=== PATIENT | female | born 1980 | race Caucasian/White ===

== ENCOUNTER 2016-11-01 10:36 | Emergency (ER) | payer OTHER ==
[~2016-11-01] VITALS: Ht 172.7 cm; Wt 119.1 kg
[~2016-11-01 10:36] MED LIST: DOCU-41 PO; HYDR-4003 PO; IBUP800T28 PO; PREN-100 PO
[2016-11-01 10:40] VITALS: BP 132/84; PULSE 71; RESP 24; O2SAT 97
[2016-11-01 11:03] LABS: BASOPHILS % (AUTO) 0.5 % (0-3); EOSINOPHILS % (AUTO) 3.1 % (0-5); MONOCYTES % (AUTO) 5.4 % (4-12); Mean Corpuscular Volume 80.5 fL (81-100); NEUTROPHILS % (AUTO) 58.2 % (40-74); Platelet Count 260 bil/L (150-400)
--- NOTE | 2016-11-01 11:09 | ED.REPORT ---
HPI-General Illness Date of Service Nov 01, 2016 ED Provider: Tracey Ruiz MD Pt is a 36 y/o female w/ a hx of Graves' disease and Nathaly's presenting to the ED c/o irregular heart palpitations onset 3 days ago. She c/o associated CP , SOB. She is not on any beta chris medication. She was told that her thyroid labs may be abnormal: labs taken yesterday include Free T4 of 1.78, HCT of 39.7 , HGB of 13.3, and creatinine of 0.61. She denies N/V/D, fever, chills. Nursing Notes Stated Complaint: CHEST PAIN Chief Complaint: Chest Pain Nursing Notes Reviewed: Yes Allergies: Coded Allergies: No Known Allergies (Verified , 07/09/13) Scheduled Docusate Sodium (Colace) 100 Mg Capsule 100 MG PO DAILY Scheduled PRN Hydrocodone-Acetaminophen 5-325 mg (Hydrocodone-Acetaminophen 5-325 mg) 1 Each Tablet 1-2 TABLET PO Q4H PRN PRN For Pain Ibuprofen (Ibuprofen) 800 Mg Tablet 800 MG PO Q6H PRN PRN For Pain Metoprolol Tartrate (Metoprolol Tartrate) 25 Mg Tablet 25 MG PO QID PRN PRN palpitations Miscellaneous Medications Vits #90/Iron Fum/FA ( Formula Tablet) 1 Each Tablet 1 EACH PO General Time Seen by MD: 10:59 Chief Complaint Other (Palps) Hx Obtained From: Patient Arrived By: Walk-in Sudden in Onset?: No Onset Occurred: 3 days ago Symptom Duration: Since onset Location: : Chest Quality: Painful Radiation: : Does not radiate Severity: Current: Mild Severity: Maximum: Mild Recent Healthcare: Previous diagnosis Past Medical History Past Medical History Nathaly's disease Graves' disease Insomnia Low back strain (2012) L5-S1 disk protrusion with canal stenosis by MRI last year -0-2-2 Past Surgical History Denies Family History Reports: Coronary artery disease, Diabetes mellitus, Hypertension Reports: Cancer Smoking History Current Every Day Smoker Social History Alcohol Use: Denies alcohol use Drug Use: Denies drug use Occupation [employer] Ambulatory Status Independent Review of Systems Full Review of Systems Constitutional: Denies: Chills, Fever Respiratory: Reports: Shortness of breath, Denies: Non-productive cough Cardiovascular: Reports: Chest pain, Palpitations GI: Denies: Abdominal pain, Diarrhea, Nausea, Vomiting Complete sys rev & neg: except as marked. Physical Exam Vital Signs Vital Signs Date Time Temp Pulse Resp B/P Pulse Ox O2 Delivery O2 Flow Rate FiO2 11/01/16 11:15 78 14 119/65 100 Nasal Cannula 2 11/01/16 10:40 36.2 71 24 132/84 97 Room Air Initial VS: Reviewed, Vital signs normal Head / Eyes: Atraumatic, Normocephalic, PERRL ENT: Mucous membranes moist, Conjunctiva normal, No scleral icterus Neck: Supple, Full range of motion Respiratory: Breath sounds normal, Clear to auscultation, No respiratory distress Abdomen / GI: Soft, No distention Extremities: Vascular intact, Neuro intact, No swelling, No tenderness Skin: Warm, Dry, No cyanosis Neurologic: Alert, Oriented, Nonfocal Psychiatric: Mood/affect normal, Behavior normal, Normal thought content Cardiovascular: Heart rate NL, Heart sounds NL, No gallop, No murmurs, No rubs , Cap refill not delayed, Peripheral circulation NL Heart Rate / Rhythm: Positive: Irregular rhythm Interpretation & Diagnostics Lab Results Interpretation Result Diagram: 11/01/16 1059 11/01/16 1059 Test 11/01/16 10:59 White Blood Count 8.5th/mm3 (3.8-10.1) Red Blood Count 4.92mil/mm3 (3.90-5.20) Hemoglobin 13.8g/dL (12.0-15.6) Hematocrit 39.6% (35.0-46.0) Mean Corpuscular Volume 80.5fL (81-100) Mean Corpuscular Hemoglobin 28.0pg (27.0-35.0) Mean Corpuscular Hemoglobin Concent 34.8% (32.0-37.0) Red Cell Distribution Width 12.9% (12.3-15.4) Platelet Count 260bil/L (150-400) Neutrophils (%) (Auto) 58.2% (40-74) Lymphocytes (%) (Auto) 32.7% (14-46) Monocytes (%) (Auto) 5.4% (4-12) Eosinophils (%) (Auto) 3.1% (0-5) Basophils (%) (Auto) 0.5% (0-3) Sodium Level 137mEq/L (134-144) Potassium Level 4.0mEq/L (3.5-5.2) Chloride Level 101mEq/L (97-108) Carbon Dioxide Level 19mmol/L (18-29) Blood Urea Nitrogen 15mg/dL (6-20) Creatinine 0.67mg/dL (0.57-1.00) Estimat Glomerular Filtration Rate 143mL/min (>59) Glucose Level 123mg/dL (60-99) Calcium Level 9.7mg/dL (8.5-10.1) Magnesium Level 2.0mg/dL (1.6-2.6) Total Bilirubin 0.3mg/dL (0.0-1.2) Aspartate Amino Transf (AST/SGOT) 24U/L (0-50) Alanine Aminotransferase (ALT/SGPT) 22U/L (0-32) Alkaline Phosphatase 104U/L (25-150) Troponin T < 0.010ug/L (0.0-0.011) Total Protein 8.0g/dL (6.4-8.4) Albumin 4.3g/dL (3.4-5.0) ECG Interpretation ECG Interpretation: Sinus rhythm rate 81 Ventricular bigeminy Time: 11:12 Interpreted by: ED physician Normal ECG Interpretation: No acute ischemic changes X-Ray Chest Interpretation Chest Xray Interpretation: IMPRESSION: No acute cardiopulmonary disease. Dictated by: Nathan Mason RRA Interpreted: Bertha Krause MD on 11/01/2016 at 11:53 Transcribed by: LISA on 11/01/2016 at 11:53 View: Portable, 1 view Interpretation / Wet Read by: Interpret - Radiologist Re-Eval/Medical Decision Med Decision/Clinical Course Presents with symptomatic palpitations. Occasional PVCs. Given by mouth metoprolol for symptomatically relief. Labs do suggest a upper and normal free T4 with a significantly suppressed TSH. No signs of actual cardiac disease or IA. Prescription for metoprolol for symptomatic relief is given. She is already set up to follow up with endocrinology and will need to see what can be done to treat her Graves' disease. Time of Eval: 12:53 Re-Evaluation/Progress Note: Pt rechecked. Discussed labs and imaging. Informed pt of plan for treatment. Pt understands and agrees with plan for treatment. F/U and RTER warnings given. All questions addressed. Counseled Regarding: Diagnosis, Lab results, Need for follow-up, When/why to return to ED Discharge & Departure Primary Impression: Palpitations Additional Impressions: Ventricular bigeminy Hyperthyroidism Disposition: Home Discharge Condition All VS Reviewed: Yes Condition: Stable Patient Instructions: Palpitations (ED) Additional Instructions: Your EKG today showed that you were in ventricular bigeminy. This rhythm is not dangerous at the moment but often causes discomfort. Your labs were normal, there was no sign of heart damage. The thyroid level was normal yesterday at 1.78. The chest x-ray was normal. Start taking 25 mg Metoprolol every 6 hours as needed for symptomatic relief. Follow-up with your primary care physician within 1 week for personalized outpatient treatment. Return to the emergency department if you experience increased chest pain, increased shortness of breath, or for other concerning symptoms. Referrals: Prema Blackman MD (PCP) Arnol Attestation Portions of this note were transcribed by Prakash Davis. I, Dr. Ruiz personally performed the history, physical exam and medical decision-making; I reviewed and confirmed the accuracy of the information in the transcribed note. Signed by Arnol Coughlin, 11/01/16 - 1130 copies to: Prema Blackman MD, Shawna L MD Nov 01, 2016 11:09 PRAKASH DAVIS Nov 01, 2016 11:13
[2016-11-01 11:15] VITALS: BP 119/65; PULSE 78; RESP 14; O2SAT 100
[2016-11-01 11:42] LABS: TROPONIN T < 0.010 ug/L (0.0-0.011)
--- NOTE | 2016-11-01 11:53 | DRSVH ---
PROCEDURE: X-RAY CHEST ONE VIEW, PORTABLE ([id number]) INDICATIONS: chest pain TECHNIQUE: One view of the chest was acquired. COMPARISON: None. FINDINGS: Surgical changes and devices: None. Lungs and pleura: No pleural effusions or pneumothorax. Lungs are clear. Mediastinum: Mediastinal contours appear normal. Heart size is normal. Bones and chest wall: No suspicious bony lesions. Overlying soft tissues appear unremarkable. IMPRESSION: No acute cardiopulmonary disease. Dictated by: Nathan Mason [facility] Interpreted: Bertha Krause MD on 11/01/2016 at 11:53 Transcribed by: LISA on 11/01/2016 at 11:53 Approved by: Bertha Krause MD, PhD on 11/01/2016 at 16:14
[2016-11-01] MEDS ORDERED: METO25TA6 PO (12:46)
[2016-11-01 13:05] VITALS: BP 120/61; PULSE 72; RESP 20; O2SAT 99
== END 2016-11-01 13:01 | disposition home or self-care (01) ==
LOC: SED 10:36
DX: R00.2 Palpitations (principal); R00.8 Other abnormalities of heart beat; E05.00 Thyrotoxicosis with diffuse goiter without thyrotoxic crisis or storm; R07.9 Chest pain, unspecified; R06.02 Shortness of breath; E06.3 Autoimmune thyroiditis; F17.200 Nicotine dependence, unspecified, uncomplicated